=== PATIENT | male | born 1970 | race Caucasian/White ===

== ENCOUNTER 2019-03-16 20:09 | Emergency (ER) | payer MEDICAID ==
[~2019-03-16] VITALS: Ht 177.8 cm; Wt 106.2 kg
[2019-03-16 20:14] VITALS: BP 118/79
[2019-03-16] MEDS ORDERED: CHLO25CA10 PO (20:32)
[2019-03-16] MEDS ORDERED: PROM12.512 PO (20:32)
[2019-03-16] MEDS ORDERED: thiamine 100mg tablet PO ONE (20:35)
[2019-03-16] MEDS ORDERED: chlordiazePOXIDE 25mg capsule PO ONE (20:35)
--- NOTE | 2019-03-16 21:01 | NUR ---
community artist has been communicating with [place] to try to facilitate pt stay. they are unable to take him tonight unless brought in by EMS non-emergent or [facility]. minute clerk for basic traffic is communicating with both services
== END 2019-03-16 21:50 | disposition home or self-care (01) ==
LOC: ER 20:09
DX: F10.239 Alcohol dependence with withdrawal, unspecified (principal); I10 Essential (primary) hypertension; J44.9 Chronic obstructive pulmonary disease, unspecified; Z87.891 Personal history of nicotine dependence; Z98.890 Other specified postprocedural states; Z79.899 Other long term (current) drug therapy
CPT/HCPCS: 99283